=== PATIENT | female | born 1935 | race Hispanic/Latino ===

== ENCOUNTER 2023-11-16 16:34 | Emergency (ER) | payer BC, MEDICARE ==
[~2023-11-16] VITALS: Ht 162.6 cm; Wt 54.4 kg
[2023-11-16 20:20] VITALS: BP 131/56; PULSE 74; RESP 16; TEMP 98.1; O2SAT 100
== END 2023-11-16 20:22 | disposition home or self-care (01) ==
LOC: ER 16:38
DX: S00.83XA Contusion of other part of head, initial encounter (principal); R42 Dizziness and giddiness; W18.39XA Other fall on same level, initial encounter; Y92.89 Other specified places as the place of occurrence of the external cause; I10 Essential (primary) hypertension; E11.9 Type 2 diabetes mellitus without complications; E78.5 Hyperlipidemia, unspecified; M85.88 Other specified disorders of bone density and structure, other site
CPT/HCPCS: 70450; 72125; 99283